=== PATIENT | male | born 1975 | race Caucasian/White ===

== ENCOUNTER → 2020-03-25 12:51 | Outpatient (CLI) | payer OTHER, SELFPAY ==
[2019-11-29 13:04] VITALS: BMI 42.0
--- NOTE | 2020-03-25 12:53 | ECHOCS_ITS ---
Reason For Study: AVR Procedure This was a 2D Doppler, Color Flow transthoracic echocardiogram. The study was technically difficult. Contrast injection was performed. Exam performed in department. Left Ventricle Normal size and thickness. The estimated ejection fraction is 65 %. Normal diastology for age. No regional wall motion abnormalities noted. Right Ventricle Normal size and thickness. Normal systolic function. Atria The left atrium is mildly enlarged. Normal right atrium. Normal atrial septum. Mitral Valve The mitral valve is structurally normal. No prolapse or stenosis seen. Tricuspid Valve Normal tricuspid valve. Trivial tricuspid valve insufficiency. Right ventricular systolic pressure estimated to be 36 mmHg. Aortic Valve Peak aortic valve gradient 22 mmHg. Mean aortic valve gradient 10 mmHg. Normal prosthetic aortic valve. Pulmonic Valve Normal pulmonic valve. Great Vessels Normal aortic root. Normal arch. Normal inferior vena cava. Inferior vena cava collapse with sniff. Pericardium/Pleural No pericardial effusion. Medication 22 gauge I.V. with prn adaptor inserted into right arm. Diluted definity 4.5ml given slow IV push to enhance endocardial definition. MMode/2D Measurements & Calculations LVIDd: 4.7 cm IVSd: 1.3 cm Ao root diam: 4.4 cm LVIDs: 2.6 cm LVPWd: 1.3 cm FS: 44.9 % LAV(MOD-bp): 74.1 ml LVAd ap4: 41.7 cm2 SV(MOD-sp4): 110.4 ml LAV(MOD-bp) Indexed: 29.7 ml/m2 EDV(MOD-sp4): 150.3 ml LAV(MOD-sp2): 68.4 ml EDV(sp4-el): 154.8 ml LAV(MOD-sp4): 80.3 ml LVAs ap4: 18.5 cm2 ESV(MOD-sp4): 39.9 ml ESV(sp4-el): 41.0 ml EF(MOD-sp4): 73.4 % EF(sp4-el): 73.5 % SV(sp4-el): 113.8 ml LA A4 area: 24.1 cm2 LA dimension(2D): 4.7 cm RA A4 area: 19.5 cm2 Time Measurements MV dec time: 0.14 sec Doppler Measurements & Calculations MV E max chaparro: 100.7 cm/sec Lat Peak E' Chaparro: 7.5 cm/sec Med Peak E' Chaparro: 6.4 cm/sec MV A max chaparro: 58.3 cm/sec E/E' lat: 13.4 E/E' med: 15.8 MV E/A: 1.7 Ao V2 max: 232.8 cm/sec LV V1 max: 93.3 cm/sec PA V2 max: 101.9 cm/sec Ao max P.7 mmHg LV V1 max P.5 mmHg Ao V2 mean: 141.3 cm/sec Ao mean P.7 mmHg Ao V2 VTI: 36.5 cm TR max chaparro: 276.2 cm/sec TR max P.5 mmHg Interpretation Summary The estimated ejection fraction is 65 %. Normal diastology for age. The left atrium is mildly enlarged. Trivial tricuspid valve insufficiency. Normal functioning prosthetic aortic valve. Right ventricular systolic pressure estimated to be 36 mmHg. Compared to echo results dated 05/19/2017, no appreciable changes noted. Ordering Physician: Norris Hurtado Referring Physician: Norris Hurtado Performed By: Tiffanie Mckeon, HUMBERTO, RVT
== END ==
PROVIDERS: Referring Provider Internal Medicine Cardiovascular Disease; Visit Provider Internal Medicine Cardiovascular Disease
DX: I35.0 Nonrheumatic aortic (valve) stenosis (principal); Q23.1 Congenital insufficiency of aortic valve; Z95.2 Presence of prosthetic heart valve; Z98.890 Other specified postprocedural states
CPT/HCPCS: 93306; Q9957; A4216; C8929

== ENCOUNTER 2021-05-20 10:18 | Outpatient (RCR) | payer OTHER, SELFPAY ==
[2021-05-20 10:55] LABS: International Normalized Ratio 3.8; Prothrombin Time (Protime)PT. 36.7 SECONDS (11.7-14.9)
== END 2021-05-20 18:00 | disposition home or self-care (01) ==
LOC: LAB 10:18
PROVIDERS: PCP Nurse Practitioner Family; Referring Provider Nurse Practitioner Family; Visit Provider Nurse Practitioner Family
DX: Z79.01 Long term (current) use of anticoagulants (principal); Z95.2 Presence of prosthetic heart valve
CPT/HCPCS: 36415; 85610

== ENCOUNTER → 2024-10-11 | Outpatient (CLI) | payer OTHER, SELFPAY ==
[2024-10-11 11:35] LABS: ALB/GLOB Ratio 0.9 RATIO (0.9-2.4); AST(SGOT) 17 U/L (15-37); Alanine Aminotransfer ALT/SGPT 23 U/L (16-61); Albumin, Serum 3.8 g/dL (3.2-5.0); Alkaline Phosphatase 51 U/L (45-117); Anion Gap 4 (5-15); BUN 12 mg/dL (7-18); BUN/Creat Ratio 9.3 RATIO (10-20); Calcium,Total 9.5 mg/dL (8.5-10.1); Chloride 107 mmol/L (98-107); Cholesterol 204 mg/dL (200); Creatinine, Serum 1.29 mg/dL (0.70-1.30); EST Glomerular Filtration Rate 63 mL/min (>60); Est Glom Filt Rate - Afr Amer 76 mL/min (>60); Globulin 4.2 g/dL (2.2-4.2); Glucose 162 mg/dL (74-106); High Density Lipoprotein 31 mg/dL; Potassium 4.4 mmol/L (3.5-5.1); Sodium Level 138 mmol/L (136-145); Triglycerides 155 mg/dL; Very Low Density Lipoprotein 31 mg/dL (5-40)
== END | disposition home or self-care (01) ==
LOC: LAB 09:57
PROVIDERS: PCP Nurse Practitioner Family; Referring Provider Internal Medicine Cardiovascular Disease; Visit Provider Internal Medicine Cardiovascular Disease
DX: E78.5 Hyperlipidemia, unspecified (principal); E11.9 Type 2 diabetes mellitus without complications
CPT/HCPCS: 36415; 80053; 80061

== ENCOUNTER → 2024-10-25 | Outpatient (CLI) | payer OTHER, SELFPAY ==
--- NOTE | 2024-10-25 10:53 | ECHOCS_ITS ---
Reason For Study: Bicuspid AV Procedure This was a 2D Doppler, Color Flow transthoracic echocardiogram. Contrast injection was performed. Exam performed in department. Left Ventricle Normal LV size. Mild concentric left ventricular hypertrophy. The left ventricular ejection fraction is 60 %. Stage 1 diastolic dysfunction. Right Ventricle Normal right ventricle. Atria The left atrium is moderately enlarged. The right atrium is mildly enlarged. Mitral Valve Trivial mitral valve insufficiency. Tricuspid Valve Trivial tricuspid valve insufficiency. Normal pulmonary artery pressure. 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 Mean peak gradient 15 mmHg. Recommend MORENO for further evaluation of the mechanical prosthetic aortic valve. Pulmonic Valve The pulmonic valve is not well visualized. Great Vessels Mildly dilated aortic root. Mild to moderately dilated aortic arch. Pericardium/Pleural No pericardial effusion. Medication Diluted definity 2ml given slow IV push to enhance endocardial definition. MMode/2D Measurements & Calculations LVIDd: 5.3 cm IVSd: 1.4 cm asc Aorta Diam: 3.9 cm LVIDs: 2.9 cm LVPWd: 1.0 cm RVDd: 4.6 cm FS: 44.3 % _ LAV(MOD-bp): 66.1 ml LVAd ap4: 30.4 cm2 SV(MOD- sp4): 63.8 ml LAV(MOD-bp) Indexed: 26.6 ml/m2 LVLd ap4: 7.3 cm SI(MOD- sp4): 25.7 ml/m2 LAV(MOD-sp2): 68.0 ml EDV(MOD-sp4): 100.6 ml LAV(MOD-sp4): 62.6 ml EDV(sp4-el): 107.3 ml LVAs ap4: 16.9 cm2 LVLs ap4: 6.4 cm ESV(MOD-sp4): 36.8 ml ESV(sp4-el): 38.1 ml EF(MOD-sp4): 63.4 % EF(sp4-el): 64.5 % _ SV(sp4-el): 69.2 ml LA A4 area: 21.7 cm2 LA dimension(2D): 4.7 cm _ RA A4 area: 21.0 cm2 TAPSE: 2.1 cm Time Measurements MV dec time: 0.21 sec Doppler Measurements & Calculations MV E max chaparro: 102.0 cm/sec Lat Peak E' Chaparro: 9.4 cm/sec Med Peak E' Chaparro: 7.8 cm/sec MV A max chaparro: 64.0 cm/sec E/E' lat: 10.8 E/E' med: 13.1 MV E/A: 1.6 _ MV dec slope: 484.0 cm/sec2 Ao V2 max: 243.1 cm/sec LV V1 max: 142.7 cm/sec Ao max P.7 mmHg LV V1 max P.1 mmHg Ao V2 mean: 177.9 cm/sec LV V1 mean P.8 mmHg Ao mean P.8 mmHg LV V1 mean: 117.0 cm/sec Ao V2 VTI: 44.4 cm LV V1 VTI: 34.5 cm AV (velocity ratio): 0.78 _ PA V2 max: 88.1 cm/sec TR max chaparro: 252.9 cm/sec TR max P.6 mmHg ECHO/Echo Complete W/ Contrast Interpretation Summary Mild concentric left ventricular hypertrophy. The left ventricular ejection fraction is 60 %. Stage 1 diastolic dysfunction. The left atrium is moderately enlarged. The right atrium is mildly enlarged. 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 Mean pe ak gradient 15 mmHg. Recommend MORENO for further evaluation of the mechanical prosthetic aortic valve. Mildly dilated aortic root. Mild to moderately dilated aortic arch. Ordering Physician: Sriram Frye Referring Physician: Ivana Wilson Performed By: Kay Farley, HUMBERTO, RVT
[2024-10-25 11:36] LABS: ALB/GLOB Ratio 0.9 RATIO (0.9-2.4); AST(SGOT) 24 U/L (15-37); Alanine Aminotransfer ALT/SGPT 23 U/L (16-61); Albumin, Serum 3.8 g/dL (3.2-5.0); Alkaline Phosphatase 53 U/L (45-117); Anion Gap 7 (5-15); BUN 31 mg/dL (7-18); BUN/Creat Ratio 17.5 RATIO (10-20); Calcium,Total 9.1 mg/dL (8.5-10.1); Chloride 98 mmol/L (98-107); Creatinine, Serum 1.77 mg/dL (0.70-1.30); EST Glomerular Filtration Rate 44 mL/min (>60); Est Glom Filt Rate - Afr Amer 53 mL/min (>60); Globulin 4.2 g/dL (2.2-4.2); Glucose 165 mg/dL (74-106); Potassium 4.5 mmol/L (3.5-5.1); Sodium Level 132 mmol/L (136-145)
== END | disposition home or self-care (01) ==
LOC: CVS 10:38
PROVIDERS: PCP Nurse Practitioner Family; Referring Provider Internal Medicine Cardiovascular Disease; Visit Provider Internal Medicine Cardiovascular Disease
DX: Q23.1 Congenital insufficiency of aortic valve (principal); E11.9 Type 2 diabetes mellitus without complications; Z95.2 Presence of prosthetic heart valve; I71.20 Thoracic aortic aneurysm, without rupture, unspecified; I10 Essential (primary) hypertension
CPT/HCPCS: 36415; 80053; 84443; 93306; Q9957; A4216; C8929